=== PATIENT | female | born 1995 | race African-American/Black ===

== ENCOUNTER 2018-11-09 02:29 | Inpatient (IN) | payer OTHER ==
[2018-11-09] MEDS ORDERED: LACTATED RINGER'S 1,000 ML IV (03:17)
[2018-11-09] MEDS ORDERED: METHYLERGONOVINE 0.2 MG INJ IM ×2 (03:30→12:30)
[2018-11-09] MEDS ORDERED: CARBOPROST 250 MCG INJ IM ×2 (03:30→12:30)
[2018-11-09] MEDS ORDERED: BUTORPHANOL 2 MG INJ IV ×2 (03:30)
[2018-11-09] MEDS ORDERED: MISOPROSTOL 200 MCG TAB PR ×2 (03:30→12:30)
[2018-11-09] MEDS ORDERED: OXYTOCIN 30 UNITS/LR 500 ML IV ×4 (03:30→12:30)
[2018-11-09] MEDS ORDERED: LIDOCAINE 1% (MPF) 30 ML INJ INJ (03:30)
[2018-11-09 04:26] LABS: ADD MAN DIFF? NO
[2018-11-09 04:28] LABS: WHITE BLOOD COUNT 8.6 10^3/ul (4.8-10.8)
[2018-11-09 04:28] LABS: BASOPHILS % 0.5 % (0.0-2.0); EOSINOPHILS # 0.1 10^3/ul (0.0-0.5); EOSINOPHILS % 0.7 % (0.0-7.0); HEMATOCRIT 38.5 % (37.0-47.0); HEMOGLOBIN 12.9 g/dl (12.0-16.0); LYMPHOCYTES # 2.1 10^3/ul (0.8-2.9); LYMPHOCYTES % 24.2 % (15.0-51.0); MEAN CORPUSCULAR HGB CONC 33.5 g/dl (32.0-37.0); MEAN CORPUSCULAR VOLUME 92.5 fl (82.0-101.0); MONOCYTE # 0.6 10^3/ul (0.3-0.9); MONOCYTES % 6.6 % (0.0-11.0); NEUTROPHIL # 5.8 10^3/ul (1.6-7.5); NEUTROPHILS % 67.3 % (39.0-77.0); PLATELET COUNT 258 10^3/UL (140-415); RED BLOOD COUNT 4.16 10^6/ul (4.20-5.40); RED CELL DISTRIBUTION WIDTH 12.3 % (11.5-14.5)
[2018-11-09] MEDS: LACTATED RINGER'S 1,000 ML IV ×2 (04:36→10:38)
[2018-11-09] MEDS: AMPICILLIN 2 GM/NS (PMX) 100 ML IV (04:37)
[2018-11-09 04:48] LABS: INR 0.89; PARTIAL THROMBOPLASTIN TIME 28.3 Sec (23.0-35.0); PROTIME 12.1 Sec (11.9-14.9); PT RATIO 0.9
[2018-11-09 05:23] LABS: HEPATITIS B SURFACE ANTIGEN NEGATIVE (NEGATIVE)
[2018-11-09] MEDS ORDERED: NALOXONE (0.4 MG/ML) INJ IV (06:00)
[2018-11-09] MEDS: FENTAnyl 2MCG/ML-ROPIV 0.2% 100 ML BAG EPI (07:45)
[2018-11-09] MEDS: AMPICILLIN 1 GM/NS (PMX) 50 ML IV (08:00)
[2018-11-09 10:34] LABS: AMPHETAMINE/METHAMPHETAMINE Negative (NEGATIVE); BARBITURATES Negative (NEGATIVE); BENZODIAZEPINES Negative (NEGATIVE); CANNABINOIDS Negative (NEGATIVE); COCAINE Negative (NEGATIVE); OPIATES Negative (NEGATIVE)
[2018-11-09] MEDS ORDERED: CEFAZOLIN 2 GM/50 ML (PMX) 50 ML IVPB (11:30)
[2018-11-09] MEDS: IBUPROFEN 600 MG TAB PO ×3 (12:13→23:31)
[2018-11-09] MEDS: OXYTOCIN 30 UNITS/LR 500 ML IV ×2 (12:21→13:38)
[2018-11-09] MEDS ORDERED: ACETAMINOPHEN 325 MG TAB PO ×2 (12:30)
[2018-11-09] MEDS ORDERED: ONDANSETRON 4 MG INJ IV (12:30)
[2018-11-09 14:57] LABS: RAPID PLASMA REAGIN NONREACTIVE (NR)
[2018-11-09] MEDS: LACTATED RINGER'S 1,000 ML IV* ×2 (15:44→20:21)
[2018-11-09] MEDS: LANOLIN HPA 1 PKT TOP (15:49)
[2018-11-09] MEDS: BENZOCAINE 20% 56 ML SPRAY TOP (15:49)
[2018-11-09] MEDS: WITCH HAZEL/GLYCERIN PAD PR (15:50)
[2018-11-10] MEDS: LACTATED RINGER'S 1,000 ML IV* ×2 (04:21→12:21)
[2018-11-10] MEDS: IBUPROFEN 600 MG TAB PO ×2 (05:25→14:08)
[2018-11-10 06:44] LABS: ADD MAN DIFF? NO
[2018-11-10 06:49] LABS: WHITE BLOOD COUNT 14.9 10^3/ul (4.8-10.8)
[2018-11-10 06:49] LABS: BASOPHIL # 0.1 10^3/ul (0.0-0.1); BASOPHILS % 0.3 % (0.0-2.0); EOSINOPHILS # 0.1 10^3/ul (0.0-0.5); EOSINOPHILS % 0.5 % (0.0-7.0); HEMATOCRIT 32.2 % (37.0-47.0); HEMOGLOBIN 10.8 g/dl (12.0-16.0); LYMPHOCYTES # 2.4 10^3/ul (0.8-2.9); LYMPHOCYTES % 16.2 % (15.0-51.0); MEAN CORPUSCULAR HEMOGLOBIN 31.2 pg (29.0-33.0); MEAN CORPUSCULAR HGB CONC 33.5 g/dl (32.0-37.0); MEAN CORPUSCULAR VOLUME 93.1 fl (82.0-101.0); MEAN PLATELET VOLUME 9.3 fl (7.4-10.4); MONOCYTE # 0.9 10^3/ul (0.3-0.9); MONOCYTES % 6.1 % (0.0-11.0); NEUTROPHIL # 11.4 10^3/ul (1.6-7.5); NEUTROPHILS % 76.4 % (39.0-77.0); PLATELET COUNT 262 10^3/UL (140-415); RED BLOOD COUNT 3.46 10^6/ul (4.20-5.40); RED CELL DISTRIBUTION WIDTH 12.6 % (11.5-14.5)
[2018-11-10] MEDS: SENNA/DOCUSATE NA (8.6MG/50MG) TAB PO (22:48)
[2018-11-11] MEDS: IBUPROFEN 600 MG TAB PO ×2 (00:57→09:16)
[2018-11-11] MEDS: DIBUCAINE 1% 30 GM OINT TOP (01:09)
[2018-11-11] MEDS: MAGNESIUM HYDROXIDE 30ML CUP PO (09:15)
[2018-11-11] MEDS: SENNA/DOCUSATE NA (8.6MG/50MG) TAB PO (09:16)
== END 2018-11-11 16:19 | disposition home or self-care (01) | DRG 807 ==
LOC: OBT 02:29 → L-D 02:29 → OBT 03:15 → L-D 03:15 → PP1 12:37
PROVIDERS: Obstetrics & Gynecology
PROC: 10D07Z6 Extraction of Products of Conception, Vacuum, Via Natural or Artificial Opening (ICD-10-PCS; principal; 2018-11-09)
PROC: 0W8NXZZ Division of Female Perineum, External Approach (ICD-10-PCS; 2018-11-09)
DX: O69.81X0 Labor and delivery complicated by cord around neck, without compression, not applicable or unspecified (principal); Z37.0 Single live birth; O66.5 Attempted application of vacuum extractor and forceps; Z3A.39 39 weeks gestation of pregnancy
CPT/HCPCS: 62322; 76815; 80307; 85025; 85610; 85730; 86592; 86850; 86900; 86901; 87340; 88307; 99464